=== PATIENT | male | born 1980 | race Two or more races ===

== ENCOUNTER 2017-05-19 07:05 | Emergency (ER) | payer OTHER, SELFPAY ==
[~2017-05-19] VITALS: Ht 185.4 cm; Wt 157.9 kg
[2017-05-19 07:06] VITALS: BP 152/85
[2017-05-19] MEDS ORDERED: IBUPROFEN 200 MG TABLET ONE (07:52)
[2017-05-19] MEDS ORDERED: IBUPROFEN 200 MG TABLET PO ONE (08:00)
== END 2017-05-19 08:16 | disposition home or self-care (01) ==
LOC: ED 07:40
DX: S46.012A Strain of muscle(s) and tendon(s) of the rotator cuff of left shoulder, initial encounter (principal); M75.92 Shoulder lesion, unspecified, left shoulder; X58.XXXA Exposure to other specified factors, initial encounter; Y93.72 Activity, wrestling; Y92.009 Unspecified place in unspecified non-institutional (private) residence as the place of occurrence of the external cause; Y99.8 Other external cause status
CPT/HCPCS: 99284